=== PATIENT | female | born 1940 | race Caucasian/White ===

== ENCOUNTER → 2017-09-12 | Outpatient (CLI) | payer OTHER, BC ==
[~2017-09-12] MED LIST: ACET-1311 PO; ALLEGRA PO; EPIDRIN; FOSAMAX PO; LEVO75TA33 PO
[2017-09-12 18:12] LABS: ALBUMIN 3.9 gm/dl (3.4-5.0); ALT/SGPT 24 U/L (12-78); BLOOD UREA NITROGEN 15 mg/dl (7-18); CALCIUM 9.3 mg/dl (8.5-10.1); CARBON DIOXIDE 28 mmol/L (21-32); CREATININE 0.85 mg/dl (0.60-1.20); GLUCOSE 97 mg/dl (70-99); POTASSIUM 3.5 mmol/L (3.5-5.1); SODIUM 136 mmol/L (136-145)
[2017-09-12 18:16] LABS: ALKALINE PHOSPHATASE 96 U/L (45-117); AST/SGOT 19 U/L (15-37); TOTAL PROTEIN 7.7 gm/dl (6.4-8.2)
== END | disposition home or self-care (01) ==
LOC: C.LABMFLN 15:03
PROVIDERS: ATTEND Family Medicine
DX: R60.0 Localized edema (principal); E03.9 Hypothyroidism, unspecified